=== PATIENT | male | born 1985 | race Caucasian/White ===

== ENCOUNTER 2016-05-31 15:31 | Emergency (ER) | payer OTHER ==
[~2016-05-31] VITALS: Ht 182.9 cm; Wt 98.4 kg
[2016-05-31 15:40] VITALS: BP 123/73
--- NOTE | 2016-05-31 15:45 | NUR ---
Patient ambulated to bed 04.
--- NOTE | 2016-05-31 15:46 | NUR ---
30/M BIB SELF C/O EPIGASTRIUM PAIN; SHARP PAIN, NONE REDIATING X 2 DAYS. PT STATES HAS DIARRHEA 2 EPISODES X TODAY ; PT DENIES N/V; SKIN IS PINK/WARM/DRY; AAOX4 WITH EVEN AND STEADY GAIT; LUNGS CLEAR BL; HR EVEN AND REGULAR; PT DENIES ANY FEVER, CP, SOB, OR COUGH AT THIS TIME; PATIENT STATES PAIN OF 3/10 AT THIS TIME; VSS; PATIENT POSITIONED FOR COMFORT; HOB ELEVATED; BEDRAILS UP X2; BED DOWN. ER MD MADE AWARE OF PT STATUS.
--- NOTE | 2016-05-31 15:52 | NUR ---
Dr. Batres evaluating patient at bedside.
[2016-05-31] MEDS ORDERED: ALUMINUM HYD/MAG/SIMETHICONE 30 ML, BELLADONNA/PHENOBARBITAL 10 ML, LIDOCAINE VISCOUS 2... PO ONE ×3 (15:55)
--- NOTE | 2016-05-31 15:57 | NUR ---
LAB at bedside.
[2016-05-31 16:11] LABS: BASOPHILS # (AUTO) 0.1 K/uL (0.00-0.22); BASOPHILS % (AUTO) 0.8 % (0.0-2.0); EOSINOPHILS # (AUTO) 0.1 K/uL (0-0.4); EOSINOPHILS % (AUTO) 1.7 % (0.0-4.0); HEMATOCRIT 41.8 % (36-52); HEMOGLOBIN 14.1 g/dL (12.0-18.0); LYMPHOCYTES # (AUTO) 1.3 K/uL (2.0-11.5); LYMPHOCYTES % (AUTO) 15.3 % (20.5-51.1); MEAN CORPUSCULAR HEMOGLOBIN 29 pg (27-31); MEAN CORPUSCULAR HGB CONC 34 g/dL (33-37); MEAN CORPUSCULAR VOLUME 85 fL (80-94); MONOCYTES # (AUTO) 1.2 K/uL (0.8-1.0); MONOCYTES % (AUTO) 14.8 % (1.7-9.3); NEUTROPHILS # (AUTO) 5.6 K/uL (1.8-7.7); NEUTROPHILS % (AUTO) 67.4 % (42.2-75.2); PLATELET COUNT (AUTO) 281 K/uL (140-450); RED CELL DISTRIBUTION WIDTH 13.5 % (11.6-13.7); WHITE BLOOD COUNT (AUTO) 8.3 K/uL (4.8-10.8)
[2016-05-31 16:19] LABS: ANION GAP 11.1 (8-16); CALCIUM 8.2 mg/dL (8.5-10.1); CARBON DIOXIDE 26.7 mmol/L (21-32); CREATININE 0.7 mg/dL (0.6-1.3); POTASSIUM 3.8 mmol/L (3.5-5.1)
[2016-05-31 16:24] LABS: ALBUMIN 3.8 g/dL (3.4-5.0); TOTAL BILIRUBIN 0.4 mg/dL (0.0-1.0); TOTAL PROTEIN, SERUM 7.6 g/dL (6.4-8.2)
[2016-05-31 16:42] VITALS: BP 114/70
[2016-05-31 16:42] LABS: APPEARANCE,URINE CLEAR (CLEAR); BILIRUBIN,URINE NEGATIVE (NEGATIVE); BLOOD, URINE TRACE-I (NEGATIVE); COLOR,URINE YELLOW (YELLOW); LEUKOCYTE ESTERASE ,URINE NEGATIVE (NEGATIVE); NITRITE, URINE NEGATIVE (NEGATIVE); PROTEIN,URINE NEGATIVE (NEGATIVE); UGLUCOSE NEGATIVE (NEGATIVE); UROBILINOGEN,URINE 0.2 EU/dL (0.2 - 1)
--- NOTE | 2016-05-31 16:42 | NUR ---
Patient discharged with v/s stable. Written and verbal after care instructions given and explained. Patient alert, oriented and verbalized understanding of instructions. Ambulatory with steady gait. All questions addressed prior to discharge. ID band removed. Patient advised to follow up with PMD. Rx of PRILOSEC & ZOFRAN given. Patient educated on indication of medication including possible reaction and side effects. Opportunity to ask questions provided and answered.
[2016-05-31 16:47] LABS: BACTERIA,URINE None Seen /HPF (None Seen); RBC,URINE 0-3 /HPF (0-5); SQUAMOUS EPITHELIAL CELL,UR 0-3 /LPF (0-3 (FEW)); WBC,URINE NONE SEEN /HPF (0-5)
== END 2016-05-31 16:42 | disposition home or self-care (01) ==
LOC: MED 15:31
DX: R10.13 Epigastric pain (principal)
CPT/HCPCS: 36415; 80053; 81001; 83690; 85025; 99284

== ENCOUNTER 2016-10-07 23:40 | Emergency (ER) | payer OTHER ==
[~2016-10-07] VITALS: Ht 185.4 cm; Wt 97.5 kg
[2016-10-07 23:45] VITALS: BP 133/82
--- NOTE | 2016-10-08 01:25 | NUR ---
TO ER BED 8
--- NOTE | 2016-10-08 02:00 | NUR ---
30Y/M PT. PRESENTS TO EDW ITH C/O ANXIETY AFTER WOKE UP, PANIC ATTACK WITH SHAKINESS, LIGHTHEADED , SOB. AAO X4, AMBULATORY WITH STEADY GAIT. RESPIRATIONS ROOM AIR,EVEN AND UNLABORED. VSS, NO S/SX OF DISTESS AT THIS TIME. ER MD MADE AWARE OF PT. STATUS.
--- NOTE | 2016-10-08 02:08 | NUR ---
Patient being evaluated by physician at bedside.
--- NOTE | 2016-10-08 02:30 | NUR ---
Patient discharged with v/s stable. Written and verbal after care instructions given and explained. Patient alert, oriented and verbalized understanding of instructions. Ambulatory with steady gait. All questions addressed prior to discharge. ID band removed. Patient advised to follow up with PMD. Rx of ATIVAN 1 MG given. Patient educated on indication of medication including possible reaction and side effects. Opportunity to ask questions provided and answered.
[2016-10-08 02:34] VITALS: BP 125/75
== END 2016-10-08 02:30 | disposition home or self-care (01) ==
LOC: MED 23:40
DX: F41.0 Panic disorder [episodic paroxysmal anxiety] (principal); J45.909 Unspecified asthma, uncomplicated
CPT/HCPCS: 99284

== ENCOUNTER 2016-12-29 20:36 | Emergency (ER) | payer OTHER ==
[~2016-12-29] VITALS: Ht 182.9 cm; Wt 89.8 kg
[2016-12-29 20:39] VITALS: BP 148/68
--- NOTE | 2016-12-29 21:42 | NUR ---
CALLED TO COME BACK NO ANSWER.
--- NOTE | 2016-12-29 22:30 | NUR ---
PT TAKEN TO BED 7.
[2016-12-29 22:35] VITALS: BP 148/68
--- NOTE | 2016-12-29 22:35 | NUR ---
PATIENT PRESENTS TO ED WITH CONGESTION/COUGH X1 DAY; PRODUCTIVE COUGH YELLOW PHLEGM SINCE NOON JEREMIAH PT DENIES N/V/D; SKIN IS PINK/WARM/DRY; AAOX4 WITH EVEN AND STEADY GAIT; LUNGS CLEAR BL; HR EVEN AND REGULAR; PT DENIES ANY FEVER, CP, SOB AT THIS TIME; PATIENT STATES PAIN OF 0/10 AT THIS TIME; VSS; PATIENT POSITIONED FOR COMFORT; HOB ELEVATED; BEDRAILS UP X2; BED DOWN. ER MD MADE AWARE OF PT STATUS.
--- NOTE | 2016-12-29 23:12 | NUR ---
Patient discharged with v/s stable. Written and verbal after care instructions given and explained. Patient alert, oriented and verbalized understanding of instructions. Ambulatory with steady gait. All questions addressed prior to discharge. ID band removed. Patient advised to follow up with PMD. Rx of codeine phosphate/promethazine hydrochloride and azithromycin given. Patient educated on indication of medication including possible reaction and side effects. Opportunity to ask questions provided and answered.
== END 2016-12-29 23:13 | disposition home or self-care (01) ==
LOC: MED 20:36
DX: J06.9 Acute upper respiratory infection, unspecified (principal); J45.909 Unspecified asthma, uncomplicated
CPT/HCPCS: 99283

== ENCOUNTER 2018-05-28 18:26 | Emergency (ER) | payer OTHER ==
[~2018-05-28] VITALS: Ht 182.9 cm; Wt 89.8 kg
[2018-05-28 18:53] VITALS: BP 128/70
--- NOTE | 2018-05-28 20:18 | NUR ---
PATIENT AMBULATED TO ER BED 2.
--- NOTE | 2018-05-28 20:25 | NUR ---
PT PRESENTS TO ED WITH C/O COUGH X 5 DAYS. DENIES FEVER, N/V/D. AAO X4, GCS 15, RESPIRATIONS EVEN AND UNLABORED, BL LUNG CLEAR. C/O NON PRODUCTIVE COUGH. SKIN WARM/PINK/DRY, +PMSC. ABDOMEN SOFT, NON DISTENDED, ACTIVE BOWEL SOUND X4. VSS, NO ACUTE DISTRESS AT THIS TIME. MADE AWARE OF PT STATUS. WILL CONTINE TO MONITOR
--- NOTE | 2018-05-28 23:03 | NUR ---
Patient being evaluated by bedside.
--- NOTE | 2018-05-28 23:26 | NUR ---
Patient discharged with v/s stable. Written and verbal after care instructions given and explained. Patient alert, oriented and verbalized understanding of instructions. Ambulatory with steady gait. All questions addressed prior to discharge. ID band removed. Patient advised to follow up with PMD. Rx of prednisolone 20 mg, motrin 800 mg given. Patient educated on indication of medication including possible reaction and side effects. Opportunity to ask questions provided and answered.
[2018-05-28 23:27] VITALS: BP 117/74
== END 2018-05-28 23:26 | disposition home or self-care (01) ==
LOC: MED 18:26
DX: R05 Cough (principal); J02.9 Acute pharyngitis, unspecified; R07.9 Chest pain, unspecified
CPT/HCPCS: 71046; 99283

== ENCOUNTER 2020-03-24 14:10 | Emergency (ER) | payer OTHER ==
[~2020-03-24] VITALS: Ht 185.4 cm; Wt 102.1 kg
[2020-03-24 14:35] VITALS: BP 154/62
--- NOTE | 2020-03-24 16:04 | NUR ---
PT SEEN AND EVALUATED BY KENNETH EVANS
[2020-03-24 16:25] VITALS: BP 154/62
== END 2020-03-24 16:25 | disposition home or self-care (01) ==
LOC: MED 14:10
DX: U07.1 COVID-19 (principal)
CPT/HCPCS: 71045; 99283

== ENCOUNTER 2020-12-31 18:29 | Emergency (ER) | payer OTHER ==
[~2020-12-31] VITALS: Ht 182.9 cm; Wt 106.6 kg
[2020-12-31 18:49] VITALS: BP 135/81
--- NOTE | 2020-12-31 18:52 | NUR ---
PT AMB TO BED 9.
--- NOTE | 2020-12-31 19:11 | NUR ---
DR. SMALLWOOD BEDSIDE EVALUATING PT
--- NOTE | 2020-12-31 19:32 | NUR ---
35 YO/M BIB SELF W C/O UPPER BACK, SHOULDER, AND NECK PAIN 5/10 SORE LIKE S/P TC X7.5 HOURS AGO. PATIENT DENIES ANY DIRECT IMPACT TO BACK, DENIES HEAD INJURY, LOC, BLURRY VISION, N/V/D, LOSS OF CONTROL OVER BOWEL OR BLADDER. REPORTS AIRBAGS DEPLOYED. BREATHING EVEN AND UNLABORED. PATIENT HAS FULL ROM TO BL UPPER AND LOWER EXTREMITIES. PATIENT SITTING IN BED LOCKED IN LOWEST POSITION W X1 SIDERAIL UP. NAD NOTED, WILL CONTINUE TO MONITOR. PMH:DENIES NKA
[2020-12-31] MEDS ORDERED: ACETAMINOPHEN 325 MG TAB PO ONE (19:35)
--- NOTE | 2020-12-31 20:06 | NUR ---
X-Ray at bedside.
--- NOTE | 2020-12-31 20:22 | NUR ---
Dr. Mosqueda examining patient.
[2020-12-31 21:01] VITALS: BP 135/81
--- NOTE | 2020-12-31 21:02 | NUR ---
Patient discharged with v/s stable. Written and verbal after care instructions given and explained. Patient verbalized understanding. Ambulatory with steady gait. All questions addressed prior to discharge. Advised to follow up with PMD.
== END 2020-12-31 21:02 | disposition home or self-care (01) ==
LOC: MED 18:29
DX: M79.621 Pain in right upper arm (principal); V43.52XA Car driver injured in collision with other type car in traffic accident, initial encounter; Y93.89 Activity, other specified; Y92.410 Unspecified street and highway as the place of occurrence of the external cause; Y99.8 Other external cause status
CPT/HCPCS: 71045; 99283; Q0092

== ENCOUNTER 2021-01-13 18:52 | Inpatient (IN) | payer OTHER, SELFPAY ==
[~2021-01-13] VITALS: Ht 182.9 cm; Wt 106.6 kg
[2021-01-13 18:57] VITALS: BP 145/70
[2021-01-13] MEDS ORDERED: ONDANSETRON 4 MG/2 ML VIAL IVP ONE (19:20)
[2021-01-13] MEDS ORDERED: KETOROLAC 30 MG/ML VIAL IVP ONE (19:20)
[2021-01-13] MEDS ORDERED: NACL 0.9% 1,000 ML IV ONE (19:20)
[2021-01-13] MEDS ORDERED: NACL 0.9% 1,000 ML IV SCH (19:20)
[2021-01-13 19:41] LABS: BASOPHILS # (AUTO) 0.1 K/uL (0.00-0.22); BASOPHILS % (AUTO) 0.4 % (0.0-2.0); EOSINOPHILS # (AUTO) 0.1 K/uL (0-0.4); EOSINOPHILS % (AUTO) 0.8 % (0.0-4.0); HEMATOCRIT 41.9 % (36-52); HEMOGLOBIN 14.1 g/dL (12.0-18.0); LYMPHOCYTES # (AUTO) 2.4 K/uL (2.0-11.5); LYMPHOCYTES % (AUTO) 19.4 % (20.5-51.1); MEAN CORPUSCULAR HEMOGLOBIN 29 pg (27-31); MEAN CORPUSCULAR HGB CONC 34 g/dL (33-37); MEAN CORPUSCULAR VOLUME 84.8 fL (80-94); MONOCYTES # (AUTO) 1.4 K/uL (0.8-1.0); MONOCYTES % (AUTO) 11.5 % (1.7-9.3); NEUTROPHILS # (AUTO) 8.5 K/uL (1.8-7.7); NEUTROPHILS % (AUTO) 67.9 % (42.2-75.2); PLATELET COUNT (AUTO) 351 K/uL (140-450); RED BLOOD CELL COUNT(AUTO) 4.94 MIL/uL (4.20-6.10); RED CELL DISTRIBUTION WIDTH 14.1 % (11.6-13.7); WHITE BLOOD COUNT (AUTO) 12.5 K/uL (4.8-10.8)
[2021-01-13 20:35] LABS: ALBUMIN 4.1 g/dL (3.4-5.0); ANION GAP 11.9 (8-16); CARBON DIOXIDE 29.4 mmol/L (21-32); CREATININE 0.8 mg/dL (0.6-1.3); POTASSIUM 3.3 mmol/L (3.5-5.1); TOTAL BILIRUBIN 0.6 mg/dL (0.0-1.0)
[2021-01-13] MEDS ORDERED: cefTRIAXone 1,000 MG VIAL ONE (21:34)
[2021-01-13] MEDS ORDERED: LORazepam 2 MG/ML VIAL IVP PRN (22:35)
[2021-01-13] MEDS ORDERED: ONDANSETRON 4 MG/2 ML VIAL IVP PRN (22:35)
[2021-01-13] MEDS ORDERED: ACETAMINOPHEN 325 MG TAB PO PRN (22:35)
[2021-01-14] VITALS (7 sets, daily range): BP systolic 111–150; BP diastolic 65–88
[2021-01-14] MEDS: NACL 0.9% 1,000 ML IV SCH ×3 (00:57→20:45)
[2021-01-14] MEDS: MORPHINE SULFATE 2 MG/ML SYR IVP PRN ×3 (04:03→18:19)
[2021-01-14] MEDS ORDERED: PIPERACILLIN/TAZOBACTAM 3.375 GM VIAL IV ONE (04:28)
[2021-01-14] MEDS: PIPERACILLIN/TAZOBACTAM 3.375 GM in DEXTROSE 5% 50 ML IV SCH ×3 (04:57→20:45)
[2021-01-14 07:03] LABS: ALBUMIN 3.7 g/dL (3.4-5.0); ANION GAP 12.7 (8-16); CREATININE 0.9 mg/dL (0.6-1.3); MAGNESIUM 1.9 mg/dL (1.8-2.4); POTASSIUM 3.7 mmol/L (3.5-5.1); TOTAL BILIRUBIN 0.8 mg/dL (0.0-1.0)
[2021-01-14 07:06] LABS: BASOPHILS % (AUTO) 0.2 % (0.0-2.0); EOSINOPHILS # (AUTO) 0.1 K/uL (0-0.4); EOSINOPHILS % (AUTO) 0.4 % (0.0-4.0); HEMATOCRIT 39.7 % (36-52); HEMOGLOBIN 13.5 g/dL (12.0-18.0); LYMPHOCYTES # (AUTO) 1.7 K/uL (2.0-11.5); LYMPHOCYTES % (AUTO) 11.2 % (20.5-51.1); MEAN CORPUSCULAR HEMOGLOBIN 29 pg (27-31); MEAN CORPUSCULAR HGB CONC 34 g/dL (33-37); MEAN CORPUSCULAR VOLUME 84.8 fL (80-94); MONOCYTES # (AUTO) 2.1 K/uL (0.8-1.0); MONOCYTES % (AUTO) 13.5 % (1.7-9.3); NEUTROPHILS # (AUTO) 11.6 K/uL (1.8-7.7); NEUTROPHILS % (AUTO) 74.7 % (42.2-75.2); PLATELET COUNT (AUTO) 326 K/uL (140-450); RED BLOOD CELL COUNT(AUTO) 4.68 MIL/uL (4.20-6.10); RED CELL DISTRIBUTION WIDTH 13.8 % (11.6-13.7); WHITE BLOOD COUNT (AUTO) 15.5 K/uL (4.8-10.8)
[2021-01-14 07:09] LABS: PROTHROMBIN TIME 10.2 secs (10.8-13.4)
[2021-01-14 07:26] LABS: APPEARANCE,URINE CLEAR (CLEAR); BILIRUBIN,URINE NEGATIVE (NEGATIVE); BLOOD, URINE 1+ (NEGATIVE); COLOR,URINE YELLOW (YELLOW); LEUKOCYTE ESTERASE ,URINE NEGATIVE (NEGATIVE); NITRITE, URINE NEGATIVE (NEGATIVE); UGLUCOSE NEGATIVE (NEGATIVE)
[2021-01-14] MEDS ORDERED: BUPIVACAINE-MPF/EPI 0.5% 30 ML VIAL INJ ONE (07:38)
[2021-01-14] MEDS ORDERED: LIDOCAINE 1% 500 MG/50 ML VIAL ONE (07:38)
[2021-01-14 07:48] LABS: RBC,URINE 0-5 /HPF (0-5); WBC,URINE 0-5 /HPF (0-5)
[2021-01-14] MEDS ORDERED: MIDAZOLAM 5 MG/5 ML VIAL ONE (08:22)
[2021-01-14] MEDS ORDERED: fentaNYL citrate 0.05 MG/ML VIAL ONE (08:23)
[2021-01-14] MEDS ORDERED: MEPERIDINE 25 MG/ML SYR ONE (08:24)
[2021-01-14] MEDS ORDERED: ONDANSETRON 4 MG/2 ML VIAL IVP PRN (08:30)
[2021-01-14] MEDS: LACTATED RINGERS 1,000 ML IV SCH (08:30)
[2021-01-14] MEDS ORDERED: HYDROmorphone 1 MG/ML AMP IVP PRN (08:30)
[2021-01-14] MEDS: ENOXAPARIN 40 MG/0.4 ML SYR SUBQ SCH (09:00)
[2021-01-14] MEDS ORDERED: SEVOFLURANE 250 ML BTL INH ONE (09:00)
[2021-01-14] MEDS ORDERED: PROPOFOL 200 MG/20 ML VIAL IV ONE (09:00)
[2021-01-14] MEDS ORDERED: ROCURONIUM 50 MG/5 ML VIAL IV ONE (09:00)
[2021-01-14] MEDS: HYDROcodone/APAP 5/325 MG 1 TAB TAB PO PRN (18:47)
[2021-01-15 04:00] VITALS: BP 127/81
[2021-01-15] MEDS: PIPERACILLIN/TAZOBACTAM 3.375 GM in DEXTROSE 5% 50 ML IV SCH (04:25)
[2021-01-15] MEDS: HYDROcodone/APAP 5/325 MG 1 TAB TAB PO PRN ×2 (04:26→09:20)
[2021-01-15] MEDS: LACTATED RINGERS 1,000 ML IV SCH (06:44)
[2021-01-15] MEDS: NACL 0.9% 1,000 ML IV SCH (06:51)
[2021-01-15 07:03] LABS: BASOPHILS % (AUTO) 0.4 % (0.0-2.0); EOSINOPHILS # (AUTO) 0.1 K/uL (0-0.4); EOSINOPHILS % (AUTO) 0.9 % (0.0-4.0); HEMATOCRIT 39.2 % (36-52); HEMOGLOBIN 13.2 g/dL (12.0-18.0); LYMPHOCYTES # (AUTO) 2.2 K/uL (2.0-11.5); LYMPHOCYTES % (AUTO) 18.7 % (20.5-51.1); MEAN CORPUSCULAR HEMOGLOBIN 29 pg (27-31); MEAN CORPUSCULAR HGB CONC 34 g/dL (33-37); MEAN CORPUSCULAR VOLUME 85.7 fL (80-94); MONOCYTES # (AUTO) 1.7 K/uL (0.8-1.0); MONOCYTES % (AUTO) 14.7 % (1.7-9.3); NEUTROPHILS # (AUTO) 7.7 K/uL (1.8-7.7); NEUTROPHILS % (AUTO) 65.3 % (42.2-75.2); PLATELET COUNT (AUTO) 301 K/uL (140-450); RED BLOOD CELL COUNT(AUTO) 4.57 MIL/uL (4.20-6.10); RED CELL DISTRIBUTION WIDTH 14.3 % (11.6-13.7); WHITE BLOOD COUNT (AUTO) 11.7 K/uL (4.8-10.8)
[2021-01-15] MEDS: ENOXAPARIN 40 MG/0.4 ML SYR SUBQ SCH (08:27)
[2021-01-15] MEDS ORDERED: HYDR-5080 PO (10:06)
== END 2021-01-15 11:20 | disposition home or self-care (01) | DRG 234 ==
LOC: MED 18:52 → MTU 23:42
PROVIDERS: ADMIT Hospitalist; ATTEND Hospitalist
PROC: 0DTJ4ZZ Resection of Appendix, Percutaneous Endoscopic Approach (ICD-10-PCS; principal; 2021-01-14 08:00)
DX: K35.80 Unspecified acute appendicitis (principal); R65.10 Systemic inflammatory response syndrome (SIRS) of non-infectious origin without acute organ dysfunction; K76.0 Fatty (change of) liver, not elsewhere classified; Z20.822 Contact with and (suspected) exposure to COVID-19
CPT/HCPCS: 36415; 71045; 80053; 81001; 82374; 83605; 83690; 83735; 85025; 85610; 85730; 87040; 87081; 88304; 96361; 96365; 96375; 99285; J0696; J1170; J1650; J1885; J2001; J2175; J2250; J2270; J2405; J2543; J2704; J3010; J3490; J7030; J7060; J7120; Q0092; Q9967

== ENCOUNTER 2021-10-02 15:47 | Emergency (ER) | payer OTHER ==
[~2021-10-02] VITALS: Ht 182.9 cm; Wt 108.0 kg
[~2021-10-02 15:47] MED LIST: HYDR-5080 PO
[2021-10-02 15:56] VITALS: BP 139/87
--- NOTE | 2021-10-02 15:59 | NUR ---
35 y/o male bib spouse from home, c/o left knee pain that started this morning at work. pt recalls jumping and states since then has been having increased pain that radiates down to left calf. skin is pink/warm/dry, slight redness on knee. a&o x4, ambulates slowly with light pressure on left extremity. lungs clear bl, heart rate even and regular. pt denies any fever, cp, sob, or cough at this time. pt states pain is 5/10 at this time. vss. ermd made aware of pt. pmh: denies nka med: denies
[2021-10-02] MEDS ORDERED: KETOROLAC 30 MG/ML VIAL IM ONE (17:10)
[2021-10-02] MEDS ORDERED: IBUP-2213 PO (17:16)
--- NOTE | 2021-10-02 17:23 | NUR ---
PER ER MID LEVEL, L KNEE IMMOBILIZER PLACED TO PT L KNEE. + CMS. PT TOLERATED BRACE. PT ALSO GIVEN CRUTCHES. CRUTCHES ADJUSTED TO PT HEIGHT AND ARM LENGTH. PT RETURNED SAFE DEMONSTRATION OF CRUTCHES
[2021-10-02] MEDS ORDERED: KETOROLAC 30 MG/ML VIAL ONE (18:31)
[2021-10-02 18:40] VITALS: BP 139/87
== END 2021-10-02 19:39 | disposition home or self-care (01) ==
LOC: MED 15:47
DX: S80.02XA Contusion of left knee, initial encounter (principal); S80.01XA Contusion of right knee, initial encounter; W22.8XXA Striking against or struck by other objects, initial encounter; Y93.39 Activity, other involving climbing, rappelling and jumping off; Y92.89 Other specified places as the place of occurrence of the external cause; Y99.8 Other external cause status
CPT/HCPCS: 29505; 73562; 96372; 99283; J1885

== ENCOUNTER 2022-08-29 19:30 | Emergency (ER) | payer OTHER ==
[~2022-08-29] VITALS: Ht 182.9 cm; Wt 106.6 kg
[~2022-08-29 19:30] MED LIST changes: +IBUP-2213 PO
[2022-08-29 19:35] VITALS: BP 137/86
--- NOTE | 2022-08-29 19:38 | NUR ---
TO LOBBY A/W BED AMBULATORY
--- NOTE | 2022-08-29 20:30 | NUR ---
SEEN AND EXAMINED BY SAMI
--- NOTE | 2022-08-29 20:40 | NUR ---
PT TO BED #4
[2022-08-29] MEDS ORDERED: CLIN300C61 PO (20:44)
[2022-08-29] MEDS ORDERED: IBUP-1842 PO (20:44)
[2022-08-29] MEDS ORDERED: LIDOCAINE 1% 500 MG/ 50 ML VIAL INJ ONE (20:45)
[2022-08-29] MEDS ORDERED: LIDOCAINE MPF 1% 5 ML ONE (20:48)
[2022-08-29] MEDS ORDERED: LIDOCAINE 2% 1000 MG/50 ML VIAL INJ ONE (20:57)
--- NOTE | 2022-08-29 21:03 | NUR ---
Dr. Suh examining patient.
--- NOTE | 2022-08-29 21:18 | NUR ---
Patient discharged with v/s stable. Written and verbal after care instructions given and explained. Patient alert, oriented and verbalized understanding of instructions. Ambulatory with steady gait. All questions addressed prior to discharge. ID band removed. Patient advised to follow up with PMD. Rx of Clindamycin HCI and ibuprofen given. Opportunity to ask questions provided and answered.
== END 2022-08-29 21:18 | disposition home or self-care (01) ==
LOC: MED 19:30
DX: L02.211 Cutaneous abscess of abdominal wall (principal); Z79.899 Other long term (current) drug therapy
CPT/HCPCS: 10060; 99283; J2001

== ENCOUNTER 2023-01-17 15:39 | Emergency (ER) | payer OTHER ==
[~2023-01-17] VITALS: Ht 182.9 cm; Wt 108.4 kg
[~2023-01-17 15:39] MED LIST changes: +CLIN300C61 PO; +IBUP-1842 PO
[2023-01-17 16:07] VITALS: BP 140/80; PULSE 72; RESP 18; TEMP 98; O2SAT 100
[2023-01-17] MEDS ORDERED: DEXAMETHASONE 10 MG/ML VIAL IM ONE (17:45)
[2023-01-17] MEDS ORDERED: KETOROLAC 30 MG/ML VIAL IM ONE (17:50)
[2023-01-17] MEDS ORDERED: BENZ-300 PO (18:37)
[2023-01-17] MEDS ORDERED: IBUP-2218 PO (18:37)
[2023-01-17] MEDS ORDERED: PROM118S5 PO (18:37)
[2023-01-17 19:42] VITALS: BP 140/80; PULSE 72; RESP 18; TEMP 98; O2SAT 100
== END 2023-01-17 19:42 | disposition home or self-care (01) ==
LOC: MED 15:39
DX: J02.9 Acute pharyngitis, unspecified (principal); Z20.822 Contact with and (suspected) exposure to COVID-19; Z79.899 Other long term (current) drug therapy; Z79.1 Long term (current) use of non-steroidal anti-inflammatories (NSAID); Z79.2 Long term (current) use of antibiotics
CPT/HCPCS: 71045; 87081; 87426; 96372; 99284; J1100; J1885